=== PATIENT | female | born 1985 | race Caucasian/White ===

== ENCOUNTER → 2018-09-28 | Outpatient (CLI) | payer OTHER ==
[~2018-09-28] MED LIST: CELEXA40 MG PO; Motrin,Rufen800 MG PO; NUVARING1 ICR VG; SKELAXIN800 M1 PO
== END | disposition home or self-care (01) ==
LOC: LAB 14:17
DX: O20.0 Threatened abortion (principal)

== ENCOUNTER → 2018-09-30 | Outpatient (CLI) | payer OTHER | END | disposition home or self-care (01) | LOC: LAB 14:00 | DX: O20.0 Threatened abortion (principal); N93.9 Abnormal uterine and vaginal bleeding, unspecified; Z3A.01 Less than 8 weeks gestation of pregnancy ==